=== PATIENT | male | born 1960 | race Caucasian/White ===

== ENCOUNTER 2016-04-19 08:29 | Day surgery (SDC) | payer OTHER ==
[~2016-04-19] VITALS: Ht 185.4 cm; Wt 86.4 kg
[~2016-04-19 08:29] MED LIST: ACET500C PO; HYDR-3516 PO
[2016-04-19 08:59] VITALS: BP 149/99; PULSE 91; RESP 20; TEMP 98.4; O2SAT 99
[2016-04-19] MEDS ORDERED: POVIDONE IODINE 5% (ANTISEPSIS KIT) 4 APPLICATIONS EACH NARE SCH (09:30)
[2016-04-19] MEDS ORDERED: CHLORHEXIDINE GLUCONATE 2 % 1 PACK (2 CLOTHS) TOPICAL SCH (09:30)
[2016-04-19] MEDS ORDERED: VANCOMYCIN 1000 MG/NS 250 ML - implanted port/tunneled catheter IV SCH ×2 (09:30)
[2016-04-19 09:33] LABS: APTT (PATIENT) 25.1 SEC (24.3-30.1); PROTHROMBIN TIME - PATIENT 10.6 SEC (9.8-11.6)
[2016-04-19] MEDS ORDERED: SODIUM CHLORIDE 0.9% 1000 ML IV SCH (10:00)
[2016-04-19] MEDS ORDERED: LIDOCAINE 1%/EPINEPHrine 1:100,000 SOLN 20 ML VIAL ONE (10:23)
[2016-04-19] MEDS ORDERED: ceFAZolin 2 GM PREMIX 50 ML ONE (10:53)
--- NOTE | 2016-04-19 11:18 | PD.RAD ---
Post Procedure Progress Note Pre Procedure Diagnosis: (1) Colon cancer Post Procedure Diagnosis: (1) Colon cancer Procedure Date: Apr 19, 2016 Supervising Radiologist: Kyle Armendariz Anesthesia: Local, Conscious Sedation Plan of Activity Patient to Unit: ROPU Patient Condition: Good See PACS Report for procedural detail/treatment Central Venous Access Device Procedure 1 Right Internal Jugular Infusaport Placement single lumen Syriac: 8 Kyle Armendariz MD Apr 19, 2016 11:18
[2016-04-19 11:30] VITALS: BP 116/66; PULSE 88; RESP 20; TEMP 98.5; O2SAT 93
[2016-04-19 11:45] VITALS: BP 108/70; PULSE 76; RESP 18; O2SAT 95
[2016-04-19 12:15] VITALS: BP 116/70; PULSE 73; RESP 18; O2SAT 95
--- NOTE | 2016-04-19 12:17 | RADRPT ---
EXAM DATE/TIME: 04/19/2016 11:07 [facility] COMPARISON: No previous studies available for comparison. INDICATIONS : Patient presents with colon cancer in need of port placement for chemotherapy treatment. MEDICAL HISTORY : Colon cancer SURGICAL HISTORY : Sigmoid colectomy ENCOUNTER: Initial ACUITY: >1 year PAIN SCORE: 0/10 LOCATION: N/A FLUORO TIME: 0.46 minutes SEDATION TIME: 30 minutes ACCESS: Right internal jugular vein SEDATION: 1.) 4 mg midazolam (Versed) IV 2.) 200 mcg fentanyl (Sublimaze) IV Prophylactic antibiotics were administered with appropriate pre-procedure timing. Vancomycin within 2 hours of procedure, Ancef (or alternative) within 1 hour of procedure. DEVICE: 1. 8 Croatian single lumen Bard Power Port PROCEDURE : 1. Continuous pulse oximetry and EKG monitoring. 2. Intravenous conscious sedation. 3. Ultrasound guidance for venous access. 4. Fluoroscopic guided implantable central venous port placement. The patient was placed supine. The neck was prepped in sterile fashion. Full sterile technique was u sed, including cap, mask, sterile gloves and gown, and a large sterile sheet. Hand hygiene and 2% ch lorhexidine Betadine was utilized per protocol for cutaneous antisepsis with appropriate dry time for site. The skin and subcutaneous tissues were infiltrated with local anesthetic solution. Under direct ultrasound guidance, central venous access was accomplished in the targeted vessel. The ultrasound images depicting access guidance were stored and saved to PACS for permanent record. A s ubcutaneous pocket was created using blunt dissection. The port was introduced to the pocket. The c atheter tubing was fed through a subcutaneous tunnel to the venotomy site. The catheter tubing was c ut to a suitable length and then was introduced through a valved Peel-Away sheath and positioned with catheter tubing tip at the cavo-atrial junction level. The pocket incision was closed with subcutic ular Vicryl suture. Steri-Strips were applied. The port was flushed and locked with heparin solutio n per protocol. Sterile dressing was applied to the site. The patient tolerated the procedure well. Conscious sedation was performed with the prescribed dosages and duration as above. The patient brandon ated the procedure well and there were no complications. EKG and oximetry remained stable throughout the procedure. The patient was sent to post anesthesia recovery in stable condition. CONCLUSION: Uncomplicated ultrasound and fluoroscopic guided implanted central venous port catheter placement as described in detail above. An 8 Croatian Power port was placed. Kyle Armendariz MD on April 19, 2016 at 12:16 Board Certified Radiologist. This report was verified electronically.
[2016-04-19 12:45] VITALS: BP 125/74; PULSE 73; RESP 18; O2SAT 95
== END 2016-04-19 13:40 | disposition home or self-care (01) ==
LOC: HROP 08:29 → HRIP 08:30 → HROP 13:40
PROVIDERS: ATTEND Internal Medicine Medical Oncology
DX: C18.7 Malignant neoplasm of sigmoid colon (principal)
CPT/HCPCS: 36561; 76937; 77001; 85610; 85730; 99152; 99153; C1788; J0690; J1642; J3370; J7030; J7050

== ENCOUNTER → 2016-06-23 | Outpatient (CLI) | payer OTHER ==
--- NOTE | 2016-06-23 11:28 | RADRPT ---
EXAM DATE/TIME: 06/23/2016 10:16 [facility] COMPARISON: No previous studies available for comparison. INDICATIONS : Hypermetabolic activity on PET scan. MEDICAL HISTORY : Colon cancer. Chemotherapy. SURGICAL HISTORY : Sigmoid colectomy. ENCOUNTER: Initial ACUITY: 1 day PAIN SCORE: 0/10 LOCATION: Bilateral neck MEASUREMENTS: RIGHT LOBE: 5.3 x 1.7 x 2.9 cm LEFT LOBE: 4.9 x 2.0 x 2.1 cm FINDINGS: RIGHT LOBE: There is an small 6 mm nodule LEFT LOBE: 1.1 cm nodule. ISTHMUS: Normal in size without focal abnormality. CONCLUSION: Solid 1.1 cm nodule on the left. I do not have the outside PET scan for comparison. Correlation would be of benefit. Jorge Costa MD FACR on June 23, 2016 at 11:25 Board Certified Radiologist. This report was verified electronically.
== END ==
LOC: HRAD 09:47
PROVIDERS: ATTEND Internal Medicine Medical Oncology
DX: C18.7 Malignant neoplasm of sigmoid colon (principal); E04.1 Nontoxic single thyroid nodule
CPT/HCPCS: 76536

== ENCOUNTER → 2016-11-17 | Outpatient (CLI) | payer OTHER ==
--- NOTE | 2016-11-17 13:04 | RADRPT ---
EXAM DATE/TIME: 11/17/2016 00:00 [facility] COMPARISON: US THYROID, June 23, 2016, 10:16. INDICATIONS : Left thyroid nodule. MEDICAL HISTORY : Carcinoma, colon. SURGICAL HISTORY : Sigmoid colon surgery. ENCOUNTER: Initial ACUITY: 4 - 6 months PAIN SCORE: 0/10 LOCATION: Bilateral neck MEASUREMENTS: RIGHT LOBE: 5.8 x 2.3 x 1.4 cm LEFT LOBE: 4.9 x 2.0 x 1.9 cm FINDINGS: RIGHT LOBE: Homogeneous echotexture without nodules or cysts. Vascularity is within normal limits. LEFT LOBE: Isolated 0.8 x 0.7 x 0.5 cm solid-appearing nodule at the junction the mid and lower pole is definite ly no bigger and may actually be slightly smaller when compared to the prior. This is very well-circu mscribed with a hypoechoic halo. ISTHMUS: Normal in size without focal abnormality. CONCLUSION: 1. 8mm well circumscribed nodule in the left lobe of the thyroid is either stable or slightly smaller compared with prior. This appears isolated. 2. Otherwise negative. Marko Winn MD on November 17, 2016 at 12:55 Board Certified Radiologist. This report was verified electronically.
== END ==
LOC: HRAD 10:14
PROVIDERS: ATTEND Internal Medicine Medical Oncology
DX: C18.7 Malignant neoplasm of sigmoid colon (principal); E04.1 Nontoxic single thyroid nodule
CPT/HCPCS: 76536

== ENCOUNTER 2016-12-29 12:55 | Day surgery (SDC) | payer OTHER ==
[2016-12-29 14:00] VITALS: BP 140/91; PULSE 74; RESP 20; TEMP 98.4; O2SAT 94
[2016-12-29] MEDS ORDERED: LIDOCAINE HCL 1% PF 30 ML VIAL ONE (14:03)
[2016-12-29 14:15] VITALS: BP 137/85; PULSE 76; RESP 20; O2SAT 95
--- NOTE | 2016-12-29 15:40 | RADRPT ---
EXAM DATE/TIME: 12/29/2016 13:02 [facility] COMPARISON: No previous studies available for comparison. INDICATIONS : Left thyroid nodule. MEDICAL HISTORY : Carcinoma, colon. SURGICAL HISTORY : Colon surgery. ENCOUNTER: Subsequent ACUITY: 1 month PAIN SCORE: 0/10 LOCATION: Left neck ORGAN: Left thyroid lobe SPECIMENS: Three fine needle aspirate(s) submitted for pathologic evaluation. DEVICE: 22 gauge needle Post procedure scanning reveals no hematoma or other complication. The possibility does exist that the tissue obtained will be non-diagnostic. If the sample is non-sepideh gnostic a repeat biopsy or surgical biopsy may need to be performed. TECHNIQUE: 1. Ultrasound guidance for needle biopsy. 2. Needle biopsy. The risks, benefits and alternatives to the procedure were explained and verbal and written consent w as obtained. The site was prepped in sterile fashion. Full sterile technique was used, including ca p, mask, sterile gloves and gown and a large sterile sheet. Hand hygiene and 2% chlorhexidine and/or betadine/alcohol prep was utilized per protocol for cutaneous antisepsis. The skin and subcutaneous tissues were infiltrated with local anesthetic solution. Sterile gel and sterile probe cover were u tilized for ultrasound guidance. With the patient on the ultrasound table, images were obtained. A needle was advanced into the identified target and the number of specimens as above obtained and corona bmitted for pathologic evaluation. The patient tolerated the procedure well and left the ultrasound suite in stable condition. CONCLUSION: Uncomplicated ultrasound guided needle biopsy of small cystic and solid nodule left lobe. Cruz Moss MD on December 29, 2016 at 15:38 Board Certified Radiologist. This report was verified electronically.
== END 2016-12-29 14:27 | disposition home or self-care (01) ==
LOC: HRAD 12:55 → HRIP 12:59 → HRAD 14:27
PROVIDERS: ATTEND Internal Medicine Medical Oncology
DX: E04.1 Nontoxic single thyroid nodule (principal)
CPT/HCPCS: 10022; 76942; 88172; 88173; C1729

== ENCOUNTER → 2017-02-16 | Outpatient (CLI) | payer OTHER ==
[~2017-02-16] MED LIST changes: -ACET500C PO; -HYDR-3516 PO; +IOHEXOL 350 MG/ML 10 ML VIAL (for RAD DIAG) IVCONTRAST ONE
--- NOTE | 2017-02-16 13:46 | RADRPT ---
EXAM DATE/TIME: 02/16/2017 13:08 [facility] COMPARISON: No previous studies available for comparison. INDICATIONS : Colon cancer 1 year follow up IV CONTRAST: 96 cc Omnipaque 350 (iohexol) IV ; Cumulative dose for multiple exams. RADIATION DOSE: 9.22 CTDIvol (mGy) ; Combined studies - Thorax/Abdomen/Pelvis MEDICAL HISTORY : Carcinoma, colon. SURGICAL HISTORY : Colon surgery ENCOUNTER: Initial ACUITY: 1 yr PAIN SCALE: 0/10 LOCATION: chest TECHNIQUE: Volumetric scanning of the chest was performed. Using automated exposure control and adjustment of t he mA and/or kV according to patient size, radiation dose was kept as low as reasonably achievable to obtain optimal diagnostic quality images. DICOM format image data is available electronically for review and comparison. Follow-up recommendations for detected pulmonary nodules are based at a minimum on nodule size and pa tient risk factors according to Fleischner Society Guidelines. FINDINGS: LUNGS: There is no consolidation or pneumothorax. No concerning pulmonary nodule is visualized. PLEURA: There is no pleural thickening or pleural effusion. MEDIASTINUM: The heart and great vessels demonstrate no acute abnormality. There is no mediastinal or hilar lymph adenopathy. AXILLAE: Within normal limits. No lymphadenopathy. SKELETAL: Within normal limits for patient age. MISCELLANEOUS: The visualized upper abdominal organs demonstrate no acute abnormality. CONCLUSION: Negative for metastatic disease.. Jorge Costa MD FACR on February 16, 2017 at 13:43 Board Certified Radiologist. This report was verified electronically.
--- NOTE | 2017-02-16 13:52 | RADRPT ---
EXAM DATE/TIME: 02/16/2017 13:10 [facility] COMPARISON: No previous studies available for comparison. INDICATIONS : Colon cancer 1 year follow up. IV CONTRAST: 96 cc Omnipaque 350 (iohexol) IV ; Cumulative dose for multiple exams. ORAL CONTRAST: Prescribed oral contrast ingested. RADIATION DOSE: 9.22 CTDIvol (mGy) ; Combined studies - Thorax/Abdomen/Pelvis MEDICAL HISTORY : Carcinoma, colon. SURGICAL HISTORY : Colon surgery, Port ENCOUNTER: Initial ACUITY: 1 yr PAIN SCALE: 0/10 LOCATION: abdominal TECHNIQUE: Volumetric scanning of the abdomen and pelvis was performed. Using automated exposure control and ad justment of the mA and/or kV according to patient size, radiation dose was kept as low as reasonably achievable to obtain optimal diagnostic quality images. DICOM format image data is available electro nically for review and comparison. FINDINGS: LOWER LUNGS: The visualized lower lungs are clear. LIVER: Homogeneous density without lesion. There is no dilation of the biliary tree. No calcified gallston es. SPLEEN: Normal size without lesion. PANCREAS: Within normal limits. KIDNEYS: Normal in size and shape. There is no mass, stone or hydronephrosis. ADRENAL GLANDS: Within normal limits. VASCULAR: There is no aortic aneurysm. BOWEL/MESENTERY: The stomach, small bowel, and colon demonstrate no acute abnormality. There is no free intraperitone al air or fluid. ABDOMINAL WALL: Within normal limits. RETROPERITONEUM: There is no lymphadenopathy. BLADDER: No wall thickening or mass. REPRODUCTIVE: Within normal limits. INGUINAL: There is no lymphadenopathy or hernia. MUSCULOSKELETAL: Within normal limits for patient age. CONCLUSION: Negative for metastatic disease. Surgical anastomosis sigmoid colon. Jorge Costa MD FACR on February 16, 2017 at 13:45 Board Certified Radiologist. This report was verified electronically.
== END ==
LOC: HRAD 11:57
PROVIDERS: ATTEND Internal Medicine Medical Oncology
DX: E86.0 Dehydration (principal); C18.7 Malignant neoplasm of sigmoid colon
CPT/HCPCS: 71260; 74177; Q9967

== ENCOUNTER 2017-03-21 06:54 | Day surgery (SDC) | payer OTHER ==
[~2017-03-21] VITALS: Ht 185.4 cm; Wt 102.3 kg
[2017-03-21 07:09] VITALS: BP 139/91; PULSE 73; RESP 20; TEMP 97.8; O2SAT 97
[2017-03-21] MEDS ORDERED: D200CAP PO (07:09)
[2017-03-21] MEDS ORDERED: VITA500T83 PO (07:09)
[2017-03-21] MEDS ORDERED: MULTTAB67 PO (07:09)
[2017-03-21 07:48] LABS: AUTOMATED NEUTROPHIL # 3.7 TH/MM3 (1.8-7.7); BASOPHIL % 0.6 % (0.0-2.0); EOSINOPHIL # 0.2 TH/MM3 (0-0.4); EOSINOPHIL % 3.3 % (0.0-4.0); HEMATOCRIT 47.9 % (39.0-51.0); HEMO FLAGS DIFF FINAL; LYMPH % 29.9 % (9.0-44.0); MEAN CELL VOLUME 85.2 FL (80.0-100.0); MEAN CORPUSCULAR HEMOGLOBIN 28.6 PG (27.0-34.0); MEAN CORPUSCULAR HGB CONC 33.6 % (32.0-36.0); MONO % 10.8 % (0.0-8.0); NEUT % 55.4 % (16.0-70.0); PLATELET COUNT 171 TH/MM3 (150-450); RED BLOOD COUNT 5.62 MIL/MM3 (4.50-5.90); RED CELL DISTRIBUTION WIDTH 14.1 % (11.6-17.2); WHITE BLOOD COUNT 6.7 TH/MM3 (4.0-11.0)
[2017-03-21 07:56] LABS: APTT (PATIENT) 24.7 SEC (24.3-30.1); PROTHROMBIN TIME - PATIENT 10.1 SEC (9.8-11.6)
[2017-03-21] MEDS ORDERED: VANCOMYCIN HCL 1000 MG VIAL ONE (08:08)
[2017-03-21] MEDS ORDERED: MIDAZOLAM HCL 2 MG/2 ML VIAL ONE (08:08)
[2017-03-21] MEDS ORDERED: SODIUM CHLORIDE 0.9% 1000 ML IV SCH (08:15)
[2017-03-21] MEDS ORDERED: VANCOMYCIN HCL 1000 MG ON-CALL/NS 250 ML IV SCH ×2 (08:15)
[2017-03-21] MEDS ORDERED: LIDOCAINE 1%/EPINEPHrine 1:100,000 SOLN 20 ML VIAL ONE (08:28)
--- NOTE | 2017-03-21 08:59 | PD.RAD ---
Post Procedure Progress Note Pre Procedure Diagnosis: (1) Colon cancer Post Procedure Diagnosis: (1) Colon cancer Procedure Date: Mar 21, 2017 Supervising Radiologist: Elbert Costa Estimated blood loss: 3cc Anesthesia: Local, Conscious Sedation Plan of Activity Patient to Unit: ROPU Patient Condition: Good Additional Comments: Port removed from the right chest without difficulty. Pt. tolerated procedure well. Full dictated report to follow See PACS Report for procedural detail/treatment Elbert Costa MD Mar 21, 2017 08:58
[2017-03-21 09:10] VITALS: BP 115/76; PULSE 59; RESP 16; TEMP 97.8; O2SAT 96
--- NOTE | 2017-03-21 09:19 | RADRPT ---
EXAM DATE/TIME: 03/21/2017 00:00 [id number], RIGHT, April 19, 2016, 11:07. INDICATIONS : Patient presents with colon cancer history in need of port removal that is no longer needed. MEDICAL HISTORY : Colon cancer hx SURGICAL HISTORY : Sigmoid colectomy ENCOUNTER: Subsequent ACUITY: > 1 year PAIN SCORE: 0/10 LOCATION: N/A SEDATION TIME: 30 minutes 1.) 2 mg midazolam (Versed) IV 2.) 100 mcg fentanyl (Sublimaze) IV Prophylactic antibiotics were administered with appropriate pre-procedure timing. Vancomycin within 2 hrs of procedure, Ancef (or alternative) within 1 hr of procedure. PROCEDURE : 1. Removal of [id number]. 2. Conscious sedation with continuous EKG and oximetry monitoring. The risk, benefits and potential complications of [id number] removal were discussed. Written conse nt was obtained. The patient was placed supine. The chest wall was prepped in sterile fashion. Full sterile techniqu e was used, including cap, mask, sterile gloves and gown, and a large sterile sheet. Hand hygiene an d 2% chlorhexidine and/or Betadine/alcohol prep was utilized per protocol for cutaneous antisepsis. The skin and subcutaneous tissues were infiltrated with local anesthetic solution. A small incision w as made, the subcutaneous pocket was opened. The port was dissected from the subcutaneous tissues and easily removed in one piece. The pocket incision was closed with subcuticular Vicryl suture. Steri -Strips were applied. Conscious sedation was performed with the prescribed dosages and duration as above in the presence of an independent trained radiology nurse to assist in the monitoring of the patient. EKG and oximetry remained stable throughout the procedure. The patient tolerated the procedure well and there were no complications. The patient was sent to post anesthesia recovery in stable condition. CONCLUSION: Uncomplicated port removal as above. Elbert Costa MD on March 21, 2017 at 9:18 Board Certified Radiologist. This report was verified electronically.
[2017-03-21 09:20] VITALS: BP 103/68; PULSE 56; RESP 14; O2SAT 93
[2017-03-21 09:50] VITALS: BP 103/62; PULSE 18; RESP 15; O2SAT 94
[2017-03-21 10:27] VITALS: BP 102/50; PULSE 65; RESP 16; O2SAT 94
[2017-03-21 10:45] VITALS: BP 97/53; PULSE 92; RESP 18; O2SAT 92
== END 2017-03-21 11:15 | disposition home or self-care (01) ==
LOC: HROP 06:54 → HRIP 06:58 → HROP 11:15
PROVIDERS: ATTEND Radiology Body Imaging
DX: Z45.2 Encounter for adjustment and management of vascular access device (principal); C18.7 Malignant neoplasm of sigmoid colon
CPT/HCPCS: 36590; 85025; 85610; 85730; 99152; 99153; J2250; J3010; J3370; J7030